=== PATIENT | male | born 1965 | race Caucasian/White ===

== ENCOUNTER → 2020-09-20 10:44 | Outpatient (CLI) | payer OTHER, SELFPAY ==
--- NOTE | ~2020-09-20 | MR_ITS ---
EXAMINATION: MR lumbar spine wo con EXAM DATE: 09/20/2020 11:22 INDICATION: Lumbar radiculopathy. Low back pain. TECHNIQUE: Multi-sequential, multiplanar MR images of the lumbar spine were obtained without contrast . Sagittal T1, T2, T2 fat saturation images. Axial T2 weighted images. There is no prior study for comparison. FINDINGS: There are hemangiomas within T11 and T12. Mild to moderate lumbar disc disease L2-3 and L5- S1, mild at L3-4 and L4-5. The vertebral bodies are aligned in the AP dimension. The conus medullaris terminates at the T12-L1 level and has normal signal intensity and morphology. Paraspinal soft tiss ue is unremarkable. Level by level evaluation: T12-L1: Disc does not extend beyond the endplate margin. Facet arthropathy: Mild. Neural foraminal stenosis: No stenosis. Central canal stenosis: No stenosis. L1-L2: There is a mild diffuse disc bulge. Facet arthropathy: Mild. Neural foraminal stenosis: Mild left. Central canal stenosis: No stenosis. L2-L3: There is a large diffuse disc bulge superimposed extrusion with inferior migration Facet arthropathy: Mild to moderate . Ligamentum flavum enlargement. Neural foraminal stenosis: Moderate bilateral. Central canal stenosis: Moderate, nerve root crowding with minimal CSF space. L3-L4: There is a moderate to large diffuse disc bulge. Facet arthropathy: Mild to moderate . Ligamentum flavum enlargement. Neural foraminal stenosis: Moderate right, mild to moderate left. Central canal stenosis: Moderate, less crowding the level above. L4-L5: There is a moderate to large diffuse disc bulge. Facet arthropathy: Moderate. Neural foraminal stenosis: Moderate to severe bilateral. Central canal stenosis: Moderate. L5-S1: There is a moderate to large diffuse disc bulge. Facet arthropathy: Moderate. Neural foraminal stenosis: Moderate to severe bilateral. Central canal stenosis: Moderate. IMPRESSION: 1. Multilevel spondylosis and moderate central canal stenosis with nerve roots most crowded at L2-3. 2. Moderate to severe lower lumbar neural foraminal stenosis. Reviewed, dictated and finalized at location B. 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
== END ==
PROVIDERS: PCP Internal Medicine; Visit Provider Nurse Practitioner Family
DX: M54.16 Radiculopathy, lumbar region (principal); M48.061 Spinal stenosis, lumbar region without neurogenic claudication
CPT/HCPCS: 72148

== ENCOUNTER 2020-10-31 12:35 | Outpatient (CLI) | payer OTHER, SELFPAY ==
[2020-10-31 13:03] LABS: Basophils Percent Auto 0.4 % (0.2-1.2); Eosinophils Absolute Auto 0.1 K/mm3 (0-0.3); Eosinophils Percent Auto 1.2 % (0-4.4); Hemoglobin 13.7 g/dL (14.0-18.0); Immature Granulocyte Absolute 0.02 K/mm3 (0.00-0.031); Immature Granulocyte Percent A 0.2 % (0-0.5); Lymphocytes Absolute Auto 1.91 K/mm3 (0.9-3.2); Lymphocytes Percent Auto 21.2 % (18.3-44.2); Mean Corpuscular HGB Conc 34.3 g/dl (32-36); Mean Corpuscular Hemoglobin 32.3 pg (26-34); Mean Corpuscular Volume 94.3 fl (80-100); Mean Platelet Volume 9.6 fl (7.4-10.4); Monocytes Absolute Auto 0.6 K/mm3 (0.1-0.6); Neutrophils Absolute Auto 6.3 K/mm3 (1.3-6.7); Platelet Count Result 225 k/mm3 (150-375); Red Blood Count 4.24 M/mm3 (4.6-6.20); Red Cell Distribution Width 13.5 % (11.5-14.5)
[2020-10-31 16:29] LABS: Alanine Aminotransferase 25 U/L (4-50); Albumin Level 4.5 g/dL (3.5-5.1); Alkaline Phosphatase 78 U/L (38-126); Anion Gap 9 mmol/L (8-16); Aspartate Amino Transferase 27 U/L (17-59); Bilirubin,Total 0.3 mg/dL (0.2-1.3); Blood Urea Nitrogen 25 mg/dL (9-20); Calcium 9.3 mg/dL (8.4-10.2); Carbon Dioxide 23 mmol/L (22-30); Chloride 107 mmol/L (98-107); Estimated Glomerular Filt Rate > 60; Glucose 109 mg/dL (75-110); Potassium 4.5 mmol/L (3.4-5.0); Sodium 139 mmol/L (137-145)
[2020-10-31 16:40] LABS: Immunoglobulin A 166 mg/dL (70-400); Immunoglobulin G 1264 mg/dL (700-1600); Immunoglobulin M 41 mg/dL (40-230)
[2020-11-03 15:36] LABS: Kappa\\Lambda Light Chains 1.23 (0.26-1.65); Lambda Light Chain 23.5 mg/L (5.7-26.3)
[2020-11-03 22:21] LABS: Albumin 4.4 g/dL (3.8-4.8); Alpha 1 Globulin 0.3 g/dL (0.2-0.3); Alpha 2 Globulin 0.9 g/dL (0.5-0.9); Beta 1 Globulin 0.5 g/dL (0.4-0.6); Gamma Globulin 1.2 g/dL (0.8-1.7); Protein, Total 7.6 g/dL (6.1-8.1)
[2020-11-05 12:19] LABS: Beta-2-Microglobulin 2.51 mg/L (<=2.51)
== END 2020-10-31 12:36 | disposition home or self-care (01) ==
PROVIDERS: PCP Internal Medicine; Visit Provider Internal Medicine Hematology & Oncology
DX: D72.9 Disorder of white blood cells, unspecified (principal)
CPT/HCPCS: 36415; 80053; 82232; 82784; 83883; 84155; 84165; 85025

== ENCOUNTER → 2023-06-10 11:25 | Outpatient (CLI) | payer OTHER, SELFPAY ==
--- NOTE | ~2023-06-10 | XR_ITS ---
Lumbosacral Spine: AP and lateral views, with neutral, flexion, extension positioning Clinical History: Pain Findings: The normal lordotic curve is maintained. No fracture seen in the lumbar spine. There is 5 m m retrolisthesis of L2 over L3. No instability evident on flexion or extension. Minimal chronic wedgi ng deformity of T12 noted. Moderate facet arthropathy present throughout the lumbar spine. The sacroi liac joints are normally outlined. Impression: 5 mm retrolisthesis of L2 over L3. Minimal chronic wedging deformity of T12. Moderate facet arthropathy. 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 Minimal chronic wedging deformity of T12. Moderate facet arthropathy.
== END ==
PROVIDERS: PCP Internal Medicine; Visit Provider Neurological Surgery
DX: M48.061 Spinal stenosis, lumbar region without neurogenic claudication (principal)
CPT/HCPCS: 72110

== ENCOUNTER 2024-03-24 06:51 | Outpatient (CLI) | payer OTHER, SELFPAY ==
--- NOTE | ~2024-03-24 | MR_ITS ---
MRI of the left shoulder Technique: Axial proton-density fat-sat images, coronal proton density fat-sat and T2 fat-sat images, and sagittal T1-weighted and T2 fat-sat images were acquired. Clinical History: Pain Findings: There is severe AC joint degenerative change, with marked bony productive change of the dis angi clavicle and acromion, with subacromial spur present. Coracoclavicular, coracohumeral ligaments a re intact. Coracoacromial ligament poorly delineated. There is moderate supraspinatus and infraspinatus tendinosis. There is a focal high-grade or possibly focal full-thickness tear at the junction of the supraspinatus and infraspinatus tendons distally. S ubscapularis tendon is intact, with severe tendinosis. There is severe tendinosis of the intra-articu lar biceps tendon. There is probable focal longitudinal split tear of the biceps tendon at the superi or aspect of the bicipital groove. There is degenerative tearing of the superior labrum, probably extending to anterosuperior and anteri or portions. There is mild glenohumeral joint degenerative change. Inferior glenohumeral ligament is intact. There is marked fluid distention of the subacromial/subdeltoid bursa, compatible with bursitis. No muscle atrophy or edema. Impression: Diffuse, severe rotator cuff tendinosis. Probable focal high-grade partial or full-thickness tear at the junction of the supraspinatus and infraspinatus tendons distally. Probable focal longitudinal split tear of the biceps tendon of the superior aspect of the bicipital g roove. Degenerative tearing of the superior labrum extending to the anterosuperior and anterior portions. Prominent subacromial/subdeltoid bursitis. Severe AC joint degenerative change. Reviewed, dictated and finalized at location M. Impression: Diffuse, severe rotator cuff tendinosis. Probable focal high-grade partial or f ull-thickness tear at the junction of the supraspinatus and infraspinatus tendo ns distally. Probable focal longitudinal split tear of the biceps tendon of the superior asp ect of the bicipital groove. Degenerative tearing of the superior labrum extending to the anterosuperior and anterior portions. Prominent subacromial/subdeltoid bursitis. Severe AC joint degenerative change.
== END 2024-03-24 06:52 ==
LOC: MICIMG 06:52
PROVIDERS: PCP Internal Medicine; Visit Provider Neurological Surgery
DX: M25.512 Pain in left shoulder (principal); S46.812A Strain of other muscles, fascia and tendons at shoulder and upper arm level, left arm, initial encounter; M75.52 Bursitis of left shoulder
CPT/HCPCS: 73221